=== PATIENT | female | born 1990 | race Caucasian/White ===

== ENCOUNTER 2017-12-10 09:39 | Emergency (ER) | payer SELFPAY ==
[2017-12-10 09:44] VITALS: BP 147/96
[2017-12-10] MEDS ORDERED: TDAP ADULT 0.5 ML INJ (BOOSTRIX) IM ONE (09:59)
--- NOTE | 2017-12-10 10:01 | EDPHY ---
H & P Time Seen by Provider: 12/10/17 09:47 HPI/ROS: CHIEF COMPLAINT: Right knee injury HISTORY OF PRESENT ILLNESS: 27-year-old female with out-of-date tetanus presents to the ER via private vehicle after she slipped on ice this morning, landed on her right knee, sustained abrasion to her right knee, unable to bear weight. Denies proximal or distal injury. No paresthesia. No head injury. PHYSICAL EXAM (Prior to examination, patient consented to physical exam, hands were washed and my usual and customary physical exam procedures followed) 1) GENERAL: Well-developed, well-nourished, alert and oriented. Appears to be in no acute distress. 2) HEAD: Normocephalic 3) HEENT: Pupils equal, round, reactive to light bilaterally. 4) LUNGS: Breathing comfortably. 5) MUSCULOSKELETAL: Exam of the right knee shows abrasion to the patella with underlying underlying tenderness. Unable or unwilling to perform range of motion secondary to pain. Compartments are soft. Unable to assess stability secondary to pain. 6) SKIN: Abrasion 7) VASCULAR: DP,PT pulses and cap refill present and brisk distally DIFFERENTIAL DIAGNOSIS: in no particular order including but not limited to fracture, sprain, compartment syndrome, septic arthritis, DVT Procedure: Crutches indications for crutch use discussed with patient. Patient fitted for crutches by ER staff. Observed ambulating with crutches. I think the patient has the capacity to safely use crutches. Usual and customary crutch walking precautions provided Procedure: Splint A knee immobilizer splint was applied by ER archives technician. After application of the splint I returned and re-examined the patient. The splint was adequately immobilizing the joint and distal to the splint the patient's circulation and sensation were intact. Patient shows no signs of compartment syndrome. Was given orthopedic precautions. MEDICAL DECISION MAKING Serial evaluations performed on patient. I discussed the limitations of x-ray in diagnosis of knee pain and injury. Discussed possibility of ACL injury. At this time I do not think that emergent MRI is currently indicated. However, I have recommended follow-up with Orthopedic surgery and provided this referral information. Informed the patient that outpatient MRI may be indicated. Doubt septic arthritis. Doubt compartment syndrome. Doubt DVT. I saw this patient independently based on established practice protocols. Care of patient under supervision of secondary Supervising physician Dr Garibay with whom I discussed case. Smoking Status: Former smoker Constitutional: Initial Vital Signs Temperature (C) 36.5 C 12/10/17 09:40 Heart Rate 94 12/10/17 09:40 Respiratory Rate 18 12/10/17 09:40 Blood Pressure 147/96 H 12/10/17 09:40 O2 Sat (%) 99 12/10/17 09:40 O2 Delivery Mode Room Air Allergies/Adverse Reactions: No Known Allergies Allergy (Unverified 12/10/17 09:42) Home Medications: Medication Instructions Recorded Hydrocodone/APAP 5/325 [[place] 1 tab PO Q6 PRN #7 tab 12/10/17 5/325 (RX)] MDM/Departure - MDM Imaging Results: Imaging Impressions Knee X-Ray 12/10/17 09:48 Impression: Minimally displaced avulsion fracture of the tibial spines. Findings discussed with Luis Lockhart 12/10/2017 at 10:14. Images reviewed myself Medications Given: Discontinued Medications Diphtheria/Tetanus/Acell Pertussis (Boostrix) 0.5 ml IM .ONCE ONE Stop: 12/10/17 10:00 Last Admin: 12/10/17 10:08 Dose: 0.5 ml - Depart Disposition: Home, Routine, Self-Care Clinical Impression: Injury of right knee Qualifiers: Encounter type: initial encounter Qualified Code(s): S89.91XA - Unspecified injury of right lower leg, initial encounter Condition: Good Instructions: Knee Sprain (ED) Additional Instructions: Return to the ER immediately if you experience discoloration, have worsening pain, numbness, tingling, or any other symptoms that concern you. If you received x-rays in the emergency department today, be advised, that ligamentous , tendon, muscular, and other non-bony injury cannot be fully ruled out. Try to keep your affected extremity elevated above the level of your chest, and keep cold packs on the affected area, for the next 48 hours. Prescriptions: Hydrocodone/APAP 5/325 [[place] 5/325 (RX)] 1 tab PO Q6 PRN #7 tab PRN Reason: Pain, Severe Referrals: Repine,Deandre, MD [Medical Doctor] - 2-3 days, call for appt.
== END 2017-12-10 11:23 | disposition home or self-care (01) ==
DX: S82.111A Displaced fracture of right tibial spine, initial encounter for closed fracture (principal); W00.0XXA Fall on same level due to ice and snow, initial encounter; Y99.8 Other external cause status; Z87.891 Personal history of nicotine dependence; Z23 Encounter for immunization
CPT/HCPCS: L1830

== ENCOUNTER 2017-12-26 13:10 | Emergency (ER) | payer SELFPAY ==
--- NOTE | 2017-12-26 13:46 | EDPHY ---
H & P Stated Complaint: R foot swelling Time Seen by Provider: 12/26/17 13:21 HPI/ROS: CHIEF COMPLAINT: Right calf pain HISTORY OF PRESENT ILLNESS: 27-year-old female presents with right calf pain. 2 weeks ago, she slipped and fell forward, striking her knee on pavement. She was seen in this emergency department. X-rays revealed a minimally displaced fracture of the tibial spine. She was placed in a knee immobilizer. She gradually started to feel better. However, 5 days ago she developed gradually increasing pain in her right calf. She was in the shower 2 days ago and noticed that her foot was turning purple and she developed cramping in her calf. Since then, any time she stands up for prolonged time, her foot becomes purple and she develops calf cramping. No history of VTE. No shortness of breath or chest pain. REVIEW OF SYSTEMS: complete 10 point ROS reviewed and is negative except for the noted elements in the HPI - Personal History LMP (Females 10-55): 1-7 Days Ago Current Tetanus/Diphtheria Vaccine: Yes Current Tetanus Diphtheria and Acellular Pertussis (TDAP): Yes Tetanus Vaccine Date: 2017 - Medical/Surgical History Hx Asthma: Yes Hx Chronic Respiratory Disease: No Hx Diabetes: No Hx Cardiac Disease: No Hx Renal Disease: No Hx Cirrhosis: No Hx Alcoholism: No Hx HIV/AIDS: No Hx Splenectomy or Spleen Trauma: No Other PMH: asthma, fibromyalgia - Social History Smoking Status: Former smoker Alcohol Use: Occasionally - Physical Exam Exam: General Appearance: Alert, pleasant Eyes: Pupils equal and round, no conjunctival pallor or injection ENT, Mouth: Mucous membranes moist Neck: Normal inspection Respiratory: Lungs are clear to auscultation Cardiovascular: Regular rate and rhythm Gastrointestinal: Abdomen is soft and nontender Neurological: A&O, nonfocal, normal gait Skin: Warm and dry, no rash Extremities: Right lower extremity-healing abrasions on the anterior aspect of the knee, no joint effusion, range of motion of the knee with minimal pain; right calf tenderness, especially over the medial aspect of the upper calf Vascular: 2+ dorsalis pedis pulse Psychiatric: Mood and affect normal Constitutional: Initial Vital Signs Temperature (C) 36.7 C 12/26/17 13:15 Heart Rate 87 12/26/17 13:15 Respiratory Rate 16 12/26/17 13:15 Blood Pressure 135/84 H 12/26/17 13:15 O2 Sat (%) 98 12/26/17 13:15 O2 Delivery Mode Room Air Allergies/Adverse Reactions: No Known Allergies Allergy (Unverified 12/26/17 13:14) Home Medications: Medication Instructions Recorded Apixaban [Eliquis 30-day Starter 1 kit PO AD #1 kit 12/26/17 Pack] Ibuprofen 12/26/17 Medical Decision Making - Diagnostics Imaging Results: Imaging Impressions Extremity Venous Study 12/26/17 13:42 Impression: There is deep venous thrombosis involving the [id number] right femoral vein, extending into the popliteal vein, and also involving the posterior tibial veins. Findings were discussed with VIMAL MARIE MD at 14:33, on 12/26/2017. Imaging: Discussed imaging studies w/ launching pad mechanic Radiologist ED Course/Re-evaluation: The prior ED visit was reviewed by me. X-rays reveal tibial spine fractures, consistent with ACL injury. Results discussed with the patient. She is aware that she needs to follow up with Ortho. Ultrasound results discussed with the patient. She is currently uninsured and does not have a primary care physician. The plan manager worked with the patient and was able to give her a starter pack of Eliquis for 30 days at a cost of $10. The pt is happy with this and will fill the rx. She is aware that she will need 3 months of rx, and hopes that her medicaid will start shortly. We also made an appointment for follow up at [facility]. Differential Diagnosis: Differential diagnosis includes though is not limited to arterial compromise, cellulitis, osteomyelitis, abscess. - Data Points Laboratory Results: Laboratory Results 12/26/17 14:45 12/26/17 14:45 12/26/17 12/26/17 12/26/17 14:45 14:45 14:45 WBC 11.00 10^3/uL H 10^3/uL (3.80-9.50) RBC 4.19 10^6/uL 10^6/uL (4.18-5.33) Hgb 13.2 g/dL g/dL (12.6-16.3) Hct 39.4 % % (38.0-47.0) MCV 94.0 fL fL (81.5-99.8) MCH 31.5 pg pg (27.9-34.1) MCHC 33.5 g/dL g/dL (32.4-36.7) RDW 11.8 % % (11.5-15.2) Plt Count 381 10^3/uL 10^3/uL (150-400) MPV 10.2 fL fL (8.7-11.7) Neut % (Auto) 65.0 % % (39.3-74.2) Lymph % (Auto) 26.1 % % (15.0-45.0) Faulk % (Auto) 5.5 % % (4.5-13.0) Eos % (Auto) 2.5 % % (0.6-7.6) Baso % (Auto) 0.5 % % (0.3-1.7) Nucleat RBC Rel Count 0.0 % % (0.0-0.2) Absolute Neuts (auto) 7.15 10^3/uL H 10^3/uL (1.70-6.50) Absolute Lymphs (auto) 2.87 10^3/uL 10^3/uL (1.00-3.00) Absolute Monos (auto) 0.60 10^3/uL 10^3/uL (0.30-0.80) Absolute Eos (auto) 0.28 10^3/uL 10^3/uL (0.03-0.40) Absolute Basos (auto) 0.06 10^3/uL 10^3/uL (0.02-0.10) Absolute Nucleated RBC 0.00 10^3/uL 10^3/uL (0-0.01) Immature Gran % 0.4 % % (0.0-1.1) Immature Gran # 0.04 10^3/uL 10^3/uL (0.00-0.10) PT 13.4 SEC SEC (12.0-15.0) INR 1.00 (0.83-1.16) APTT 26.7 SEC SEC (23.0-38.0) Sodium 140 mEq/L mEq/L (135-145) Potassium 4.7 mEq/L mEq/L (3.3-5.0) Chloride 106 mEq/L mEq/L (97-110) Carbon Dioxide 25 mEq/l mEq/l (22-31) Anion Gap 9 mEq/L mEq/L (6-14) BUN 19 mg/dL mg/dL (7-23) Creatinine 0.7 mg/dL mg/dL (0.6-1.0) Estimated GFR > 60 Glucose 92 mg/dL mg/dL (70-100) Calcium 9.5 mg/dL mg/dL (8.5-10.4) Total Bilirubin 0.5 mg/dL mg/dL (0.1-1.4) Conjugated Bilirubin 0.3 mg/dL mg/dL (0.0-0.5) Unconjugated Bilirubin 0.2 mg/dL mg/dL (0.0-1.1) AST 19 IU/L IU/L (14-46) ALT 27 IU/L IU/L (9-52) Alkaline Phosphatase 84 IU/L IU/L (38-126) Total Protein 7.6 g/dL g/dL (6.3-8.2) Albumin 4.3 g/dL g/dL (3.5-5.0) Departure - Departure Disposition: Home, Routine, Self-Care Clinical Impression: DVT (deep venous thrombosis) Qualifiers: DVT location: lower extremity Affected thrombotic vein of extremity: femoral Chronicity: acute Laterality: right Qualified Code(s): I82.411 - Acute embolism and thrombosis of right femoral vein Condition: Good Instructions: Apixaban (By mouth), Deep Vein Thrombosis (ED) Additional Instructions: You have a blood clot in your leg. You will need to take a blood thinner for 3 months. Blood thinners can cause bleeding, including nose bleeds or GI bleeding. Take Eliquis as prescribed. Do not take ibuprofen, aspirin or naproxen while you are on Eliquis. You have an appointment at [facility] at [address] [place] [address] ([phone]) on Sunday01/04/18 at 11:20am. Please arrive by 10:50am to fill out new patient paperwork. Referrals: [facility],. [Clinic] - As per Instructions Prescriptions: Apixaban [Eliquis 30-day Starter Pack] 1 kit PO AD #1 kit
[2017-12-26 14:54] LABS: PLATELET COUNT 381 10^3/uL (150-400)
[2017-12-26 15:04] LABS: PROTIME(PATIENT) 13.4 SEC (12.0-15.0)
[2017-12-26 15:51] VITALS: BP 143/102
--- NOTE | 2017-12-26 17:09 | ASMTCMCOM ---
CM Note CM Note Notes: Requested to assist patient w/establishing a PCP in order to ensure pt receives follow up re:pt's DVT. This CM called [facility] and made pt an appt on Sun01/04/18 at 11:20am; pt provided location and contact info. Pt also provided a 30-day free trial card for Eliquis. Pt states her Medicaid application is pending. CM available for further assistance if needed. Date Signed: 12/26/2017 05:08 PM Electronically Signed By:Rosy Weston RN
== END 2017-12-26 16:06 | disposition home or self-care (01) ==
DX: I82.411 Acute embolism and thrombosis of right femoral vein (principal); J45.909 Unspecified asthma, uncomplicated; M79.7 Fibromyalgia; Z87.891 Personal history of nicotine dependence

== ENCOUNTER → 2018-05-01 | Outpatient (CLI) | payer MEDICAID | LOC: FIMAGING 15:20 | PROVIDERS: ATTEND Family Medicine | DX: M79.661 Pain in right lower leg (principal); M79.89 Other specified soft tissue disorders ==